=== PATIENT | male | born 1985 | race Caucasian/White ===

== ENCOUNTER 2018-04-05 18:30 | Emergency (ER) | payer BC, SELFPAY ==
[2018-04-05 18:32] VITALS: BP 163/104; PULSE 97; RESP 17; TEMP 37.4; O2SAT 97; BMI 29.0
--- NOTE | 2018-04-05 18:44 | RAD_ITS ---
STUDY: X-RAY - LEFT FOOT CLINICAL: Male, 33 years old. Injury. Pain. TECHNIQUE: 3 view(s) of the foot. COMPARISON: None. FINDINGS: There is nondisplaced fracture across the base of the fifth metatarsal. No other acute abnormalities. Normal talus, calcaneus, and tarsal bones. Normal visualized subtalar, talonavicular, calcaneocuboid, tarsal and tarsometatarsal articulations. Normal first-fourth metatarsi. Normal metatarsophalangeal joint of the great toe. Normal tibial and fibular sesamoid bones. Normal interphalangeal joint of the great toe. Normal phalanges of the great toe. Normal second through fifth metatarsophalangeal joints. Normal interphalangeal joints and phalanges of the lesser toes. The soft tissue structures are unremarkable. RAD/Foot min 3 Views IMPRESSION: There is nondisplaced fracture across the base of the fifth metatarsal. Electronically Signed: Tani Flores MD at 19:08 EDT , Service support ,
--- NOTE | 2018-04-05 18:50 | ED.VISSUMM ---
- ER Visit Summary Date of Service: 04/05/18 Chief Complaint: Foot pain History of Present Illness: The patient is a 33 M who rolled his left foot. He complains of pain to his lateral left foot. No other injuries or complaints. Physical Examination: Patient is tender to palpation at the lateral left foot overlying the fifth metatarsal proximally. Otherwise unremarkable and nontender. Skin appears normal. Neurovascular intact. Test Results: Xrays pending Emergency Department Course and Treatment: Patient declined pain medicine. Will check x-rays. FX at the base of the left fifth metatarsal was noted. Patient placed in a walking boot and crutches. His prescription database report was negative. He was given a short course of [place]. Follow-up with Dr. Warner who is on-call for orthopedics. Treatment Plan: As above Disposition: Discharged Impression: 1. Left foot fifth metatarsal fracture This note was generated with [employer] dictation software. It may contain incorrect words, spelling, and punctuation that were not noted in review of the chart prior to signing ED Disposition - Plan for ED Patient: Chief Complaint: Lower Extremity Injury Referrals: Faustino Vallejo MD [Primary Care Provider] -
--- NOTE | 2018-04-05 19:52 | DCINST.ED_ITS ---
ED Disposition - Plan for ED Patient: Chief Complaint: Lower Extremity Injury Instructions: ED Fx Foot Prescriptions: Hydrocodone Bitart/Apap 5-325 [[place] 5MG-325MG] 1 tab PO Q6H PRN PRN 3 Days #10 tab PRN Reason: Pain Referrals: Gurmeet Warner DO [STAFF PHYSICIAN] -
[2018-04-05 20:00] VITALS: BP 145/99; PULSE 84; RESP 16; O2SAT 96
== END 2018-04-05 20:01 | disposition home or self-care (01) ==
LOC: ED 19:13
PROVIDERS: Emergency Provider Emergency Medicine; Family Provider Family Medicine; PCP Family Medicine
DX: S92.355A Nondisplaced fracture of fifth metatarsal bone, left foot, initial encounter for closed fracture (principal); X50.1XXA Overexertion from prolonged static or awkward postures, initial encounter; Y93.9 Activity, unspecified; Y92.9 Unspecified place or not applicable; Z72.0 Tobacco use
CPT/HCPCS: 73630; 99284